=== PATIENT | female | born 1940 | race Caucasian/White ===

== ENCOUNTER 2022-07-11 13:51 | Emergency (ER) | payer MEDICARE ==
[2022-07-11] MEDS ORDERED: HYDROcodone/Acetaminophen 5/325 mg Tablet ONE (14:18)
[2022-07-11] MEDS ORDERED: Bacitracin 1 PK ONE (16:14)
== END 2022-07-11 16:30 | disposition home or self-care (01) ==
LOC: BURERS 13:51
DX: S00.31XA Abrasion of nose, initial encounter (principal); S60.512A Abrasion of left hand, initial encounter; S00.81XA Abrasion of other part of head, initial encounter; E78.5 Hyperlipidemia, unspecified; I10 Essential (primary) hypertension; Z79.899 Other long term (current) drug therapy; W17.89XA Other fall from one level to another, initial encounter
CPT/HCPCS: 70450; 70486; 72125

== ENCOUNTER 2024-05-23 12:08 | Outpatient (CLI) | payer MEDICARE | END 2024-05-23 12:09 | disposition home or self-care (01) | LOC: BURRAD 12:08 | PROVIDERS: ATTEND Physician Assistant | DX: M54.31 Sciatica, right side (principal); M47.816 Spondylosis without myelopathy or radiculopathy, lumbar region; M41.9 Scoliosis, unspecified | CPT/HCPCS: 72100 ==